=== PATIENT | male | born 1975 | race Caucasian/White ===

== ENCOUNTER 2021-01-12 09:16 | Day surgery (SDC) | payer BC, SELFPAY ==
[2021-01-12 09:19] VITALS: BP 154/67; PULSE 73; RESP 18; TEMP 36.4; O2SAT 99
[2021-01-12] MEDS: SODIUM CHLORIDE 0.9% IV 1,000 ML 150 ML IV CONT (10:38)
[2021-01-12] MEDS: GLUCAGON FOR INJ 1 MG VIAL IM (10:38)
[2021-01-12 10:50] LABS: Basophils Percent Auto 0.4 % (0.2-1.2); Eosinophils Absolute Auto 0.1 K/mm3 (0-0.3); Eosinophils Percent Auto 1.2 % (0-4.4); Hematocrit 42.5 % (42.0-52.0); Hemoglobin 14.5 g/dL (14.0-18.0); Immature Granulocyte Absolute 0.02 K/mm3 (0.00-0.031); Immature Granulocyte Percent A 0.2 % (0-0.5); Lymphocytes Absolute Auto 1.71 K/mm3 (0.9-3.2); Lymphocytes Percent Auto 18.9 % (18.3-44.2); Mean Corpuscular HGB Conc 34.1 g/dl (32-36); Mean Corpuscular Hemoglobin 30.3 pg (26-34); Mean Corpuscular Volume 88.9 fl (80-100); Mean Platelet Volume 9.3 fl (7.4-10.4); Monocytes Absolute Auto 0.7 K/mm3 (0.1-0.6); Monocytes Percent Auto 7.7 % (2.6-8.5); Neutrophils Absolute Auto 6.5 K/mm3 (1.3-6.7); Neutrophils Percent Auto 71.6 % (45.5-73.1); Platelet Count Result 217 k/mm3 (150-375); Red Blood Count 4.78 M/mm3 (4.6-6.20); Red Cell Distribution Width 12.4 % (11.5-14.5)
[2021-01-12 11:01] LABS: Anion Gap 8 mmol/L (8-16); Blood Urea Nitrogen 14 mg/dL (9-20); Calcium 9.2 mg/dL (8.4-10.2); Carbon Dioxide 34 mmol/L (22-30); Chloride 96 mmol/L (98-107); Estimated CRCL calculation 146 ml/min; Estimated Glomerular Filt Rate > 60; Glucose 108 mg/dL (75-110); Potassium 3.5 mmol/L (3.4-5.0); Sodium 138 mmol/L (137-145)
[2021-01-12 11:35] VITALS: BP 131/73; PULSE 73; RESP 18; TEMP 36.6; O2SAT 99
--- NOTE | 2021-01-12 11:37 | ED.GENADULT ---
HPI - General Adult General Chief complaint: Unspecified Stated complaint: food bolus Time Seen by Provider: 01/12/21 09:35 Source: patient Mode of arrival: ambulatory Limitations: no limitations History of Present Illness HPI narrative: 45-year-old with a history of gastric bypass here with complaints of unable to keep fluids down. Patient states that he ate pork 2 days ago might have got stuck and ever since then he is unable to drink any fluids. Patient states that this morning he wanted to drink some water a protein shake it came out right away. Patient states that he had similar issue 10 years ago. Onset (ago): day(s) (2) Exacerbating factors: eating Associated symptoms: denies other symptoms Related Data Allergies Allergy/AdvReac Type Severity Reaction Status Date / Time Penicillins Allergy Unknown Verified 01/12/21 11:44 Review of Systems Review of Systems: All systems reviewed & are unremarkable except as noted in HPI and below Constitutional: Constitutional: Reports no additional constitutional complaints Eyes: Eyes: Reports no additional eye complaints ENT: Reports system reviewed and no additional complaints, except as documented Cardiovascular: Cardiovascular: Reports no additional cardiovascular complaints Respiratory: Respiratory: Reports no additional respiratory complaints Gastrointestinal: Gastrointestinal: Reports as per HPI Musculoskeletal: Musculoskeletal: Reports no additional musculoskeletal complaints Neurologic: Reports system reviewed and no additional complaints, except as documented [facility] Past Medical History Medical History (Updated 01/12/21 @ 11:46 by Aniket Forrest MD) Food impaction of esophagus Morbid obesity Surgical History Surgical History (Updated 01/12/21 @ 11:45 by Howie Woodall MD) Gastric bypass status for obesity Social History Social History Gender identity (if verbalized by the patient): Male Exam Narrative: Exam Narrative: GENERAL: Well-appearing, obese, and in no acute distress. HEAD: Normocephalic, atraumatic. EYES: PERRLA and EOMI. ENT: Mucous membranes moist. NECK: Supple. CHEST: Clear to auscultation. No respiratory distress. HEART: Regular rate and rhythm. No murmur heard. Normal peripheral pulses. ABDOMEN: Soft, nontender, nondistended, normal active bowel sounds. EXTREMITIES: Normal range of motion. No edema. SKIN: Warm, dry, no rash. NEURO: No focal deficits. Alert and oriented x3. PSYCH: Normal mood and affect. Course Vital Signs Vital signs: Vital Signs Temperature 36.4 C L 01/12/21 09:19 Pulse Rate 73 01/12/21 09:19 Respiratory Rate 18 01/12/21 09:19 Blood Pressure 154/67 H 01/12/21 09:19 Pulse Oximetry 99 01/12/21 09:19 Temperature 36.4 C L 01/12/21 09:19 Pulse Rate 73 01/12/21 09:19 Respiratory Rate 18 01/12/21 09:19 Blood Pressure 154/67 H 01/12/21 09:19 Pulse Oximetry 99 01/12/21 09:19 Medical Decision Making MDM Narrative Medical decision making narrative: Given history of eating pork chop and having nausea and vomiting soon after appears to be more like food bolus will consult GI. Meanwhile I will draw CBC chemistry give glucagon. Vital Signs Vital Signs: Vital Signs Temperature 36.4 C L 01/12/21 09:19 Pulse Rate 73 01/12/21 09:19 Respiratory Rate 18 01/12/21 09:19 Blood Pressure 154/67 H 01/12/21 09:19 Pulse Oximetry 99 01/12/21 09:19 Temperature 36.4 C L 01/12/21 09:19 Pulse Rate 73 01/12/21 09:19 Respiratory Rate 18 01/12/21 09:19 Blood Pressure 154/67 H 01/12/21 09:19 Pulse Oximetry 99 01/12/21 09:19 Lab Data Result diagrams: 01/12/21 10:45 01/12/21 10:45 Labs: Lab Results 01/12/21 01/12/21 Range/Units 10:45 10:45 WBC 9.0 (4.5-10.0) K/mm3 RBC 4.78 (4.6-6.20) M/mm3 Hgb 14.5 (14.0-18.0) g/dL Hct 42.5 (42.0-52.0) % MCV
--- NOTE | 2021-01-12 11:43 | PM.HPGS ---
History of Present Illness History of Present Illness Consent: Risks, benefits, and alternatives have been discussed and questions answered. Patient agrees to proceed with procedure. Chief complaint: food bolus Narrative: Dayton Quinn is a 45 year old male h/o gastric bypass 2 years ago but he says that before his surgery had one instance of food bolus that required EGD, denies any more dysphagia after surgery and even discontinued using his omeprazole. Wednesday night had pork and since then unable to keep even liquids down, finally came to ER. Review of Systems Constitutional: Constitutional: Denies headache(s) and Denies weakness Eyes: Eyes: Denies blurry vision ENT: Reports Normal hearing present, Denies headache(s) and Denies neck pain Cardiovascular: Cardiovascular: Denies chest pain and Denies dyspnea Respiratory: Respiratory: Denies dyspnea Gastrointestinal: Gastrointestinal: Reports no additional gastrointestinal complaints Genitourinary: Genitourinary: Denies dysuria Musculoskeletal: Musculoskeletal: Denies neck pain Integumentary/Breasts: Skin/Breast: Denies dry skin Neurologic: Reports Normal hearing present, Denies headache(s) and Denies weakness Psychiatric: Psychiatric: Denies anxiety Endocrine: Endocrine: Denies change in body appearance Hematologic/Lymphatic: Hematologic/Lymphatic: Denies easy bleeding Allergic/Immunologic: Allergic/Immunologic: Denies urticaria PMFSH Past Medical History Medical History (Updated 01/12/21 @ 11:45 by Howie Woodall MD) Food impaction of esophagus Morbid obesity Surgical History Surgical History (Updated 01/12/21 @ 11:45 by Howie Woodall MD) Gastric bypass status for obesity Social History Social History Gender identity (if verbalized by the patient): Male Meds Home Medications and Allergies Allergies Allergy/AdvReac Type Severity Reaction Status Date / Time Penicillins Allergy Unknown Verified 01/12/21 11:44 Vital Signs Vital Signs - 24 hr 01/12/21 09:19 Temperature 97.5 F L Pulse Rate 73 Respiratory Rate 18 Blood Pressure 154/67 H Pulse Oximetry 99 Exam Const: General: comfortable and no acute distress Nutritional Appearance: obese HENMT: General nose exam: Normal nares present Eyes: General: appearance normal, both eyes and all related structures Neck: Neck: no JVD Resp: Auscultation: clear to auscultation bilaterally Cardio: Rate: regular rate Rhythm: regular rhythm GI: Inspection: non-distended GI Palp: Yes Soft to palpation Skin: General skin exam: normal color Neuro: General: gait normal Speech: normal speech Extrem: General: normal to inspection Psych: Mental Status: mental status grossly normal Assessment and Plan Assessment and plan (1) Food impaction of esophagus: Code(s): T18.128A - Food in esophagus causing other injury, initial encounter Status: Acute Assessment and Plan: urgent EGD (2) Morbid obesity: Code(s): E66.01 - Morbid (severe) obesity due to excess calories Status: Acute (3) Gastric bypass status for obesity: Code(s): Z98.84 - Bariatric surgery status Status: Acute
--- NOTE | 2021-01-12 11:46 | WPDANESEPPF ---
Anes - Initial Pre Proc Eval Procedure: Operation Date: 01/12/21 11:30 Proposed Procedures p Esophagogastroduodenoscopy(Not Applicable) - Howie Woodall MD Date/Time: 01/12/21 11:46 Surgeon: Howie Woodall MD Pre Op Diagnosis: food bolus Patient Data Age: 45 Gender: M Height: 5 ft 7 in Weight: 150 kg Last Vital Signs Temp 36.4 C L 01/12/21 09:19 Pulse 73 01/12/21 09:19 Resp 18 01/12/21 09:19 BP 154/67 H 01/12/21 09:19 Pulse Ox 99 01/12/21 09:19 Allergies Allergy/AdvReac Type Severity Reaction Status Date / Time Penicillins Allergy Unknown Verified 01/12/21 11:44 Laboratory Tests 01/12/21 01/12/21 10:45 10:45 WBC 9.0 K/mm3 K/mm3 (4.5-10.0) RBC 4.78 M/mm3 M/mm3 (4.6-6.20) Hgb 14.5 g/dL g/dL (14.0-18.0) Hct 42.5 % % (42.0-52.0) MCV 88.9 fl fl (80-100) MCH 30.3 pg pg (26-34) MCHC 34.1 g/dl g/dl (32-36) RDW 12.4 % % (11.5-14.5) Plt Count 217 k/mm3 k/mm3 (150-375) MPV 9.3 fl fl (7.4-10.4) Immature Gran % (Auto) 0.2 % % (0-0.5) Neut % (Auto) 71.6 % % (45.5-73.1) Lymph % (Auto) 18.9 % % (18.3-44.2) [place] % (Auto) 7.7 % % (2.6-8.5) Eos % (Auto) 1.2 % % (0-4.4) Baso % (Auto) 0.4 % % (0.2-1.2) Lymph # (Auto) 1.71 K/mm3 K/mm3 (0.9-3.2) [place] # (Auto) 0.7 K/mm3 H K/mm3 (0.1-0.6) Eos # (Auto) 0.1 K/mm3 K/mm3 (0-0.3) Baso # (Auto) 0.0 K/mm3 K/mm3 (0.0-0.1) Abs Immat Gran (auto) 0.02 K/mm3 K/mm3 (0.00-0.031) Absolute Neuts (auto) 6.5 K/mm3 K/mm3 (1.3-6.7) Absolute Nucleated RBC 0.0 K/mm3 K/mm3 (0.0-0.012) Nucleated RBC % 0.0 % % (0.0-0.2) Sodium 138 mmol/L mmol/L (137-145) Potassium 3.5 mmol/L mmol/L (3.4-5.0) Chloride 96 mmol/L L mmol/L (98-107) Carbon Dioxide 34 mmol/L H mmol/L (22-30) Anion Gap 8 mmol/L mmol/L (8-16) BUN 14 mg/dL mg/dL (9-20) Creatinine 0.80 mg/dL mg/dL (0.7-1.3) Estim Creat Clear Calc 146 ml/min ml/min Estimated GFR > 60 (59 - ) Glucose 108 mg/dL mg/dL (75-110) Calcium 9.2 mg/dL mg/dL (8.4-10.2) Patient hx anesthesia problems: other (slow to awaken) Family hx anesthesia problems: none PMFSH Past Medical History Medical History Food impaction of esophagus Morbid obesity Surgical History Surgical History Gastric bypass status for obesity Social History Social History Gender identity (if verbalized by the patient): Male Anes - Eval Final PreProcedure Day of Procedure 01/12/21 11:46 Patient weight: super morbidly obese Heart: regular rate and rhythm Lungs: clear to auscultation Airway: Mallampati scale class II Neurological: alert and oriented Last oral intake: >/= 8 hours ASA classification: III Emergent: no Anesthetic plan: proceed Anesthesia type and monitoring: general GIVS and standard monitoring Informed Consent: The patient's anesthetic plan and its attendant risks and benefits were discussed with the patient/family/POA. Questions were solicited and answers provided to the satisfaction of the patient/family/POA.
[2021-01-12] MEDS: LACTATED RINGERS 1,000 ML 150 ML IV CONT (11:48)
[2021-01-12 12:08] VITALS: BP 111/63; PULSE 66; RESP 23; O2SAT 94
[2021-01-12 12:18] VITALS: BP 113/63; PULSE 61; RESP 26; O2SAT 95
[2021-01-12 12:28] VITALS: BP 129/75; PULSE 65; RESP 24; O2SAT 94
== END 2021-01-12 12:57 | disposition home or self-care (01) ==
LOC: ANHED 10:04 → ANHSURGERY 10:34
PROVIDERS: Emergency Provider Family Medicine; Visit Provider Internal Medicine Gastroenterology
PROC: 0DJ08ZZ Inspection of Upper Intestinal Tract, Via Natural or Artificial Opening Endoscopic (ICD-10-PCS; CPT 43235; principal; 2021-01-12 11:30)
DX: T18.128A Food in esophagus causing other injury, initial encounter (principal); K21.00 Gastro-esophageal reflux disease with esophagitis, without bleeding; Z98.84 Bariatric surgery status; E66.01 Morbid (severe) obesity due to excess calories; Z68.43 Body mass index [BMI] 50.0-59.9, adult
CPT/HCPCS: 43247; 36415; 80048; 85025; J1610; J2704; J7030; J7120